=== PATIENT | female | born 1990 | race Two or more races ===

== ENCOUNTER 2017-01-30 23:15 | Emergency (ER) | payer SELFPAY ==
[2017-01-30 23:25] VITALS: BP 133/87; PULSE 98; TEMP 98.3; BMI 32.5
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
[2017-01-31] MEDS ORDERED: IBUPROFEN 600 MG TABLET (FP) PO ONE (04:00)
[2017-02-04 00:06] LABS: CHLA.TRACHOMATI Negative (Negative)
== END 2017-01-31 04:38 | disposition home or self-care (01) ==
LOC: FER 23:15
DX: T76.21XA Adult sexual abuse, suspected, initial encounter (principal)
CPT/HCPCS: 36415; 87491; 87591; 99281-25